=== PATIENT | male | born 1970 | race Caucasian/White ===

== ENCOUNTER 2019-06-06 08:55 | Outpatient (RCR) | payer BC | END 2019-06-22 | LOC: PT 08:55 | PROVIDERS: ATTEND Specialist | DX: S43.431A Superior glenoid labrum lesion of right shoulder, initial encounter (principal); M75.111 Incomplete rotator cuff tear or rupture of right shoulder, not specified as traumatic; M25.511 Pain in right shoulder; M62.81 Muscle weakness (generalized) ==